=== PATIENT | female | born 1995 | race Caucasian/White ===

== ENCOUNTER 2017-06-25 16:35 | Emergency (ER) | payer SELFPAY ==
[2017-06-25 16:43] VITALS: BP 155/76; BMI 29.6
--- NOTE | 2017-06-25 17:29 | DR.CP ---
HPI - Time Seen Time seen: 17:20 - PCP Primary Care Physician: NFD - Complaint Chief Complaint Doctor Comments: Patient was seen in the ED at [place] for chest pain; work up negative, she was seen in [place] ER on yesterday for cardiac workup, the results were negative. Today she is a asymptomatic, she states that she wants a second opinion. Patient was informed that we would glad to work her up if she had chest pain but that we do not do second opinion without cause. She was advised to follow up with her primary care physician. Chief Complaint:: PT C/O CHEST PAINS AND THAT SHE WAS SEEN IN THE ER IN [place] 2 WEEKS AGO AND THAT SHE WAS DX WITH ACID REFLUX AND SHE WAS GIVEN PEPCID AND IT IS NOT WORKING SHE IS STILL HAVING PAINS, A CARDIAC WORK UP WAS DONE AND SHE WANTS A SECOND OPINION,, PT SEEN YESTERDAY IN THE ER IN [place] AND SHE WAS DX WITH UTI.. Self Treatment fo Chief Complaint: PT C/O THROBING PAINS TO HER MID CHEST AND EXERTION MAKES IT WORSE,, AND SHE IS SOB AT TIMES . - Source History Provided: Patient - Mode of Arrival Mode of Arrival: Ambulatory - Timing Onset of Chief Complaint: 06/23/17 - Location Chest Pain Radiation Location: None - Associated Signs and Symptoms Associated Signs and Symptoms: Shortness of Breath PMH - PMH Past Medical History: No Past Surgical History: No - Family History History of Family Medical Conditions: No - Social History Does patient currently use any type of tobacco product: Yes Have you used tobacco products in the last 12 months: Yes Type of Tobacco Use: Cigarettes How many years tobacco product used: 7 Does any household member use tobacco: No Alcohol Use: Rarely Do you use any recreational Drugs:: No Lives With: Family Lives Where: Home - infectious screening In the last 2 months have you had wt loss of >10#?: NO Have you had fever, night sweats or hemotysis?: No Have you traveled outside the country in the last 6 months?: No Isolation: Standard PE - Vitals Vitals: Temperature 96.9 F Pulse Rate 101 Respiratory Rate 20 Blood Pressure 155/76 O2 Sat by Pulse Oximetry 100 - Diagnosis Discharge Problem: Asymptomatic - Discharge Plan Condition: Stable - Follow ups/Referrals Follow ups/Referrals: NFD,None [Primary Care Provider] - 3 days - Instructions
== END 2017-06-25 17:56 | disposition home or self-care (01) ==
LOC: ER 16:35
DX: Z04.8 Encounter for examination and observation for other specified reasons (principal)
CPT/HCPCS: 99281